=== PATIENT | male | born 1980 | race Caucasian/White ===

== ENCOUNTER 2020-07-02 23:48 | Emergency (ER) | payer SELFPAY ==
[~2020-07-02] VITALS: Ht 180.3 cm; Wt 105.7 kg
[2020-07-02 23:58] VITALS: Ht 180.3 cm; Wt 105.7 kg
[2020-07-03 02:50] VITALS: BP 122/44
== END 2020-07-03 02:50 | disposition home or self-care (01) ==
LOC: ED 23:48
DX: T15.01XA Foreign body in cornea, right eye, initial encounter (principal); X58.XXXA Exposure to other specified factors, initial encounter; Y93.89 Activity, other specified; Y92.89 Other specified places as the place of occurrence of the external cause; Y99.8 Other external cause status